=== PATIENT | female | born 1960 | race Caucasian/White ===

== ENCOUNTER 2017-07-02 14:56 | Emergency (ER) | payer OTHER ==
[2017-07-02] MEDS: HYDROmorphONE 1 MG/ML SYG IV (16:39)
[2017-07-02] MEDS: DIPHENHYDRAMINE 50 MG INJ IV (16:40)
[2017-07-02] MEDS: PROCHLORPERAZINE 10 MG INJ IV (16:40)
[2017-07-02 17:07] LABS: TROPONIN-I < 0.012 ng/ml (0.00-0.12)
== END 2017-07-02 18:45 | disposition home or self-care (01) ==
LOC: E/R 14:56
DX: G43.909 Migraine, unspecified, not intractable, without status migrainosus (principal); R42 Dizziness and giddiness
CPT/HCPCS: 84484; 93005; 96374; 96375; 99284-25